=== PATIENT | male | born 1980 | race Caucasian/White ===

== ENCOUNTER 2017-03-16 14:33 | Inpatient (IN) | payer OTHER ==
[~2017-03-16] VITALS: Ht 172.7 cm; Wt 131.3 kg
[2017-03-16 14:56] VITALS: BP 116/65
[2017-03-16 14:58] LABS: BILIRUBIN NEGATIVE (NEGATIVE); BLOOD 3+ (NEGATIVE); CLARITY SL CLOUDY (CLEAR); COLOR YELLOW (YELLOW); GLUCOSE NEGATIVE (NEGATIVE); KETONE NEGATIVE (NEGATIVE); LEUKO ESTERASE 1+ (NEGATIVE); NITRITE NEGATIVE (NEGATIVE); UROBILINOGEN 0.2 E.U./dl (0.2-1.0)
[2017-03-16 15:08] LABS: HEMATOCRIT 42.8 % (42.0-52.0); HEMOGLOBIN 14.4 g/dl (14.0-18.0); MEAN CORPUSCULAR HGB 29.9 pg (27.0-31.0); MEAN CORPUSCULAR HGB CONC 33.6 g/dl (33.0-37.0); MEAN PLATELET VOLUME 9.7 fl (9.6-12.3); PLATELET COUNT AUTOMATED 245 10*3/uL (130-400); RED BLOOD COUNT 4.81 10*6/uL (4.50-5.90); RED CELL DISTRI WIDTH 12.2 % (0-14.5); WHITE BLOOD COUNT 7.3 10*3/uL (4.8-10.8)
[2017-03-16 15:19] LABS: BACTERIA 1+; EPITHELIAL CELLS 0-2; WBC 16-20 wbc/hpf (0-5)
[2017-03-16 15:25] LABS: ALBUMIN 4.2 gm/dl (3.1-4.5); CREATININE 1.58 mg/dL (0.70-1.30); POTASSIUM 3.9 mmol/L (3.5-5.1); TOTAL PROTEIN 7.5 gm/dL (6.4-8.2)
[2017-03-16 15:37] VITALS: BP 101/49
[2017-03-16 15:45] LABS: PLATELET SUFFICIENCY NORMAL (NORMAL); TOTAL CELLS COUNTED 100 #CELLS
[2017-03-16 15:46] LABS: VACUOLATION OF NEUTROPHILS SLIGHT
[2017-03-16 17:45] VITALS: BP 105/71
--- NOTE | 2017-03-16 17:45 | NUR ---
A 36, admitted to , under the services of HUMBERTO Staples DO with a diagnosis UTI, SEVERE SEPSIS. Chief complaint is PENILE PAIN, DIZZINESS, DYSURIA. Patient arrived via from ER. Monitor applied. Initial assessment completed. Vital signs taken and recorded. HUMBERTO STAPLES DO notified of admission to the unit. Orders received. See assessment for past medical history, medications and allergies. Patient and/or family oriented to unit. [facility] visitation policy reviewed. Clothing/patient valuable form completed. ASSESSMENT COMPLETE. SKIN INTACT WITH NO WOUNDS. WANTS FLU SHOT ON DISCHARGE. HOME MEDICATIONS VERIFIED. DR ROTH NOTIFIED. DARLYN LINTON
[2017-03-16] MEDS ORDERED: ENALAPRIL5 MG PO (18:33)
[2017-03-16] MEDS ORDERED: ZYRTEC10 MG PO (18:34)
--- NOTE | 2017-03-16 19:00 | NUR ---
ADMINISTERED PO NORCO LEFT FLANK PAIN RATED 8/10 AND IV ZOFRAN FOR NAUSEA. WILL MONITOR FOR EFFECTIVENESS.
[2017-03-16 20:00] VITALS: BP 107/72
[2017-03-16 20:48] VITALS: BP 98/60
--- NOTE | 2017-03-16 20:48 | NUR ---
pt. called out and stated "I feel like I can't catch my breath." pt. denies any pain. Vital signs takend and recorded. Lung sounds clear slight diminished. Increased O2 to 3L via NC. Pulse ox 96-98%.
--- NOTE | 2017-03-16 21:05 | NUR ---
UPON REASSESSING PATIENT, PATIENT FOUND SLEEPING. O2 IN USE. NO DISTRESS NOTED
--- NOTE | 2017-03-16 21:30 | NUR ---
SLEEPING, AWAKENS EASILY. RESPIRATIONS EASY. PULSE OX 98% 3L. DENIES SOB AT PRESENT. PATIENT CLAIMS HX SLEEP APNEA WITH C-PAP USE AT HOME. OFFERED AND EDUCATED REGARDING TEDS, DECLINED. IV FLUIDS INFUSING PER ORDER. CALL LIGHT WITHIN REACH. NO VOICED COMPLAINTS
--- NOTE | 2017-03-17 01:35 | NUR ---
TEMP 100.0. MEDICATED WITH TYLENOL PER PRN ORDER. ALSO REQUESTED AND RECEIVED ZOFRAN IV FOR C/O NAUSEA. CALL LIGHT WITHIN REACH. WILL MONITOR FOR EFFECTIVENESS
--- NOTE | 2017-03-17 01:48 | NUR ---
DR Spring BRADY ON FLOOR, INQUIRING ABOUT PATIENT CONDITION. IN TO ASSESS PATIENT
--- NOTE | 2017-03-17 02:02 | NUR ---
DR Dong DUNNE CONTACTED AND INFORMED OF +BC [facility]
--- NOTE | 2017-03-17 03:30 | NUR ---
EARLIER TYLENOL EFFECTIVE, TEMP 100.0
[2017-03-17 05:07] LABS: BUN 16 mg/dl (7-24); CHLORIDE 106 mmol/L (98-107); CHOLESTEROL 140 mg/dL (<200); CREATININE 1.53 mg/dL (0.70-1.30); POTASSIUM 3.8 mmol/L (3.5-5.1); SODIUM 139 mmol/L (136-145); TRIGLYCERIDES 73 mg/dl (<150); VLDL CHOLESTEROL 15 mg/dL (6-40)
[2017-03-17 05:15] LABS: HDL CHOLESTEROL 39 mg/dl (40-60); LDL CHOLESTEROL 86 mg/dL (9-159); THYROID STIM HORMONE (HS) 0.465 uIU/ml (0.358-4.75)
--- NOTE | 2017-03-17 06:00 | NUR ---
SLEEPING. RESPIRATIONS EASY. IV FLUIDS MAINTAINED. CALL LIGHT WITHIN REACH
[2017-03-17 06:12] LABS: ACT PARTIAL THROMBO TIME 31.3 SECONDS (20.8-31.5); INTERNATIONAL NORM RATIO 1.2 (2.0-3.5)
[2017-03-17 06:38] LABS: HEMATOCRIT 38.8 % (42.0-52.0); HEMOGLOBIN 12.5 g/dl (14.0-18.0); MEAN CELL VOLUME 91.9 fl (80.0-94.0); MEAN CORPUSCULAR HGB 29.6 pg (27.0-31.0); MEAN CORPUSCULAR HGB CONC 32.2 g/dl (33.0-37.0); MEAN PLATELET VOLUME 10.8 fl (9.6-12.3); PLATELET COUNT AUTOMATED 191 10*3/uL (130-400); RED BLOOD COUNT 4.22 10*6/uL (4.50-5.90); RED CELL DISTRI WIDTH 12.9 % (0-14.5); WHITE BLOOD COUNT 13.1 10*3/uL (4.8-10.8)
[2017-03-17 07:51] LABS: PLATELET SUFFICIENCY NORMAL (NORMAL); TOTAL CELLS COUNTED 100 #CELLS; TOXIC GRANULATION SLIGHT
[2017-03-17 08:00] VITALS: BP 144/78
[2017-03-17 08:14] LABS: VITAMIN D, 25-HYDROXY 10.5 ng/mL (30-100)
--- NOTE | 2017-03-17 09:00 | NUR ---
Radiology Transporter in to talk to patient. Patient states lives at home with alone. There are few steps in the home. Physician: out of state Pharmacy: out of state Home health services: none Patient's level of ADLs: INDEPENDENT Patient has working utilities: all working DME: none Follow-up physician's appointment after d/c: will be made by hospitalist nurse director upon discharge Does patient want to access PORTAL?: no Discharge plan discussed with patient, patient lives at home, is independen tin adls and ambulation, drives, works, patient states he will be going home when able and denies any home needs. RODRIGO OWENS
--- NOTE | 2017-03-17 09:00 | NUR ---
CALLED DR REYES OFFICE REGARDING NEW PT CONSULT. LEFT INFORMATION WITH NURY.
[2017-03-17 12:00] VITALS: BP 114/66
--- NOTE | 2017-03-17 14:12 | NUR ---
DR ROTH NOTIFIED OF PTS RESPIRATIONS AT 27 PER MINUTE AND TEMP OF 99.5. NO NEW ORDERS
[2017-03-17 16:00] VITALS: BP 125/74
[2017-03-17 20:00] VITALS: BP 138/80
--- NOTE | 2017-03-17 20:00 | NUR ---
RESTING WITH EYES CLOSED. RESPIRATIONS EASY. LUNGS DIMINISHED. O2 IN USE AT 2L. ABD SOFT WITH NORMOACTIVE BOWEL SOUNDS, C/O DIARRHEA D/T ANTIBIOTICS. IV FLUIDS INFUSING PER ORDER. CALL LIGHT WITHIN REACH. WILL MONITOR
--- NOTE | 2017-03-17 20:32 | NUR ---
MEDICATED WITH TYLENOL PER PRN ORDER FOR TEMP OF 102.9 WILL MONITOR
--- NOTE | 2017-03-17 21:00 | NUR ---
INFORMED PATIENT OF NEED FOR C-DIF STOOL. HAT PLACED IN TOILET
--- NOTE | 2017-03-17 23:00 | NUR ---
EARLIER TYLENOL EFFECTIVE, TEMP 97.8
[2017-03-18] VITALS: BP 152/89
--- NOTE | 2017-03-18 | NUR ---
SLEEPING. RESPIRATIONS EASY. VSS. IV FLUIDS MAINTAINED. CALL LIGHT WITHIN REACH
--- NOTE | 2017-03-18 04:25 | NUR ---
medicated with tylenol per prn order for c/o headache. also received tums for c/o indigestion. will monitor for effectiveness
--- NOTE | 2017-03-18 05:00 | NUR ---
sitting in recliner. no voiced complaints
--- NOTE | 2017-03-18 06:00 | NUR ---
earlier meds appear effective. sleeping. respirations easy. iv fluids maintained. call light within reach
[2017-03-18 06:26] LABS: HEMATOCRIT 36.1 % (42.0-52.0); HEMOGLOBIN 12.2 g/dl (14.0-18.0); MEAN CORPUSCULAR HGB 29.9 pg (27.0-31.0); MEAN CORPUSCULAR HGB CONC 33.8 g/dl (33.0-37.0); MEAN PLATELET VOLUME 11.3 fl (9.6-12.3); RED BLOOD COUNT 4.08 10*6/uL (4.50-5.90); RED CELL DISTRI WIDTH 12.5 % (0-14.5); WHITE BLOOD COUNT 13.8 10*3/uL (4.8-10.8)
[2017-03-18 06:29] LABS: MEAN CELL VOLUME 88.5 fl (80.0-94.0); PLATELET COUNT AUTOMATED 128 10*3/uL (130-400)
[2017-03-18 06:53] LABS: BUN 12 mg/dl (7-24); CHLORIDE 102 mmol/L (98-107); CREATININE 0.97 mg/dL (0.70-1.30); POTASSIUM 3.4 mmol/L (3.5-5.1); SODIUM 135 mmol/L (136-145)
[2017-03-18 07:34] LABS: BASOPHILS 1 % (0-1); PLATELET SUFFICIENCY LOW (NORMAL); TOTAL CELLS COUNTED 100 #CELLS
[2017-03-18 08:00] VITALS: BP 146/80
--- NOTE | 2017-03-18 09:36 | NUR ---
wendy french for c/o nausea and vomiting. will monitor.
--- NOTE | 2017-03-18 10:30 | NUR ---
LENKA BATES, NOT FULLY EFFECTIVE AT THIS TIME.
[2017-03-18 12:00] VITALS: BP 159/96
[2017-03-18 16:00] VITALS: BP 134/78
--- NOTE | 2017-03-18 17:35 | NUR ---
SYLVESTER GIVEN PER REQUEST FOR C/O GENERALIZED DISCOFORT. WILL MONITOR.
--- NOTE | 2017-03-18 18:23 | NUR ---
TYLENOL EFFECTIVE PER PT.
[2017-03-18 20:00] VITALS: BP 150/82; BP 152/95
--- NOTE | 2017-03-18 20:00 | NUR ---
RESTING IN BED WITH EYES CLOSED. RESPIRATIONS EASY. LUNGS DIMINISHED, CLEAR. PULSE OX 91% 35% VENTURI. ENCOURAGED TO COUGH AND DEEP BREATH. ABD SOFTLY OBESE WITH NORMOACTIVE BOWEL SOUNDS, CONTINUES TO C/O DIARRHEA. IV FLUIDS INFUSING PER ORDER. CALL LIGHT WITHIN REACH. NO VOICED COMPLAINTS
--- NOTE | 2017-03-18 22:00 | NUR ---
REMAINS DROWSY. SLEEPING, ONLY OOB TO BATH ROOM
[2017-03-19] VITALS: BP 146/94
--- NOTE | 2017-03-19 00:54 | NUR ---
MEDICATED WITH TYLENOL PER PRN ORDER FOR TEMP 1004
--- NOTE | 2017-03-19 03:00 | NUR ---
EARLIER TYLENOL EFFECTIVE, TEMP 98.2
--- NOTE | 2017-03-19 06:00 | NUR ---
RESTED THROUGHOUT NIGHT WITH NO DISTRESS NOTED. RESPIRATIONS EASY. O2 REMAINS IN USE VIA VENTURI. CONTINUES TO HAVE DIARRHEA AND URINARY FREQUENCY. IV FLUIDS INFUSING PER ORDER. CALL LIGHT WITHIN REACH
[2017-03-19 06:35] LABS: BASO % 0.1 % (0.0-1.0); HEMATOCRIT 39.8 % (42.0-52.0); HEMOGLOBIN 13.3 g/dl (14.0-18.0); LYMPH # 0.8 10*3/uL (1.3-4.4); LYMPH % 5.3 % (27.0-41.0); MEAN CELL VOLUME 87.1 fl (80.0-94.0); MEAN CORPUSCULAR HGB 29.1 pg (27.0-31.0); MEAN CORPUSCULAR HGB CONC 33.4 g/dl (33.0-37.0); MEAN PLATELET VOLUME 11.5 fl (9.6-12.3); MONO # 0.6 10*3/uL (0.1-1.0); MONO % 3.9 % (3.0-9.0); NEUT # 14.2 10*3/uL (2.3-7.9); NEUT % 89.6 % (47.0-73.0); PLATELET COUNT AUTOMATED 164 10*3/uL (130-400); RED BLOOD COUNT 4.57 10*6/uL (4.50-5.90); RED CELL DISTRI WIDTH 12.5 % (0-14.5); WHITE BLOOD COUNT 15.8 10*3/uL (4.8-10.8)
[2017-03-19 06:52] LABS: ALBUMIN 3.1 gm/dl (3.1-4.5); ALKALINE PHOSPHATASE 77 U/L (45-117); BUN 9 mg/dl (7-24); CHLORIDE 102 mmol/L (98-107); CREATININE 1.03 mg/dL (0.70-1.30); POTASSIUM 3.2 mmol/L (3.5-5.1); SGOT/AST 32 IU/L (3-35); SGPT/ALT 38 U/L (12-78); SODIUM 137 mmol/L (136-145); TOTAL PROTEIN 6.9 gm/dL (6.4-8.2)
[2017-03-19 06:54] LABS: ACT PARTIAL THROMBO TIME 27.3 SECONDS (20.8-31.5)
[2017-03-19 08:00] VITALS: BP 160/88
--- NOTE | 2017-03-19 08:00 | NUR ---
HOB ELEVATED, EASY RESPIRATIONS WITH SKIN W/D. PT HAS MASK O2 OFF, DISCUSSED RATIONAL FOR THE NEED TO WEAR MASK 02 AT ALL TIMES. PT VOICES UNDERSTANDING. PT ADMITS TO S.O.B WITH EXERTION. FATHER AT BEDSIDE & REVIEWED CALL LIGHT SYSTEM FOR ASSISTANCE. SEE SHIFT ASSESSMENT.
--- NOTE | 2017-03-19 09:18 | NUR ---
DR KERN NOTIFIED THAT PT DESATS WITHOUT MASK O2 & BECOMES TACHYCARDIC WITH EXERTION. ALSO INFORMED THAT ANTIHYPERTENSIVE HOME MEDS HAVE NOT BEEN ORDERED.
--- NOTE | 2017-03-19 11:51 | NUR ---
DR SHEPHERD NOTIFIED OF BLOOD CULTURE RESULTS. NO NEW ORDERS.
[2017-03-19 12:00] VITALS: BP 128/88
[2017-03-19 16:00] VITALS: BP 157/84
[2017-03-19 20:00] VITALS: BP 159/82
--- NOTE | 2017-03-19 20:20 | NUR ---
1946 RESTING IN BED ON LEFT SIDE. CALL LIGHT IN REACH. ALERT. IV FLUIDS CONT. PULSE OX 97% ON 3L 02 VIA NC. NO DISTRESS NOTED. NO C/O'S VOICED AT THIS TIME. MONITOR REMAINS ST IN THE LOW 100'S.
--- NOTE | 2017-03-19 22:10 | NUR ---
RESTING IN BED WITH EYES CLOSED. APPEARS TO BE SLEEPING.
[2017-03-20] VITALS: BP 150/92
--- NOTE | 2017-03-20 00:27 | NUR ---
UP TO BR. HR STILL ELEVATES WITH ACTIVITY. PT REMAINS AFEBRILE.
--- NOTE | 2017-03-20 04:27 | NUR ---
RESTING IN BED WITH EYES CLOSED. APPEARS TO BE SLEEPING.
--- NOTE | 2017-03-20 06:12 | NUR ---
SLEPT WELL THIS SHIFT. IV FLUIDS CONT. NO DISTRES NOTED. CONDITION GUARDED.
--- NOTE | 2017-03-20 07:17 | NUR ---
SLEEPING DURING REPORT
[2017-03-20 07:27] LABS: HEMATOCRIT 35.2 % (42.0-52.0); HEMOGLOBIN 12.1 g/dl (14.0-18.0); MEAN CELL VOLUME 87.1 fl (80.0-94.0); MEAN CORPUSCULAR HGB CONC 34.4 g/dl (33.0-37.0); MEAN PLATELET VOLUME 11.6 fl (9.6-12.3); PLATELET COUNT AUTOMATED 170 10*3/uL (130-400); RED BLOOD COUNT 4.04 10*6/uL (4.50-5.90); RED CELL DISTRI WIDTH 12.8 % (0-14.5); WHITE BLOOD COUNT 12.6 10*3/uL (4.8-10.8)
[2017-03-20 07:48] LABS: ALBUMIN 2.6 gm/dl (3.1-4.5); ALKALINE PHOSPHATASE 102 U/L (45-117); BUN 9 mg/dl (7-24); CHLORIDE 105 mmol/L (98-107); CREATININE 0.87 mg/dL (0.70-1.30); POTASSIUM 3.2 mmol/L (3.5-5.1); SGOT/AST 38 IU/L (3-35); SGPT/ALT 43 U/L (12-78); SODIUM 141 mmol/L (136-145)
[2017-03-20 08:00] VITALS: BP 147/84
[2017-03-20 08:03] LABS: PLATELET SUFFICIENCY NORMAL (NORMAL); TOTAL CELLS COUNTED 100 #CELLS
--- NOTE | 2017-03-20 09:00 | NUR ---
case management visits with patient, patient denies any home needs
--- NOTE | 2017-03-20 09:01 | NUR ---
DR STOKES CALLED ABOUT PATIENT'S HOME ENALAPRIL
--- NOTE | 2017-03-20 09:18 | NUR ---
DISCUSSED GOOD HAND WASHING & PROTECTION WHEN HE LEAVES. LAB RESULTS REVIEWED
--- NOTE | 2017-03-20 09:46 | NUR ---
SINUS ARRYTHMIA 96-110. DR KERN HERE AND WATCHING MONITOR ALSO.
--- NOTE | 2017-03-20 09:53 | NUR ---
DR KERN HERE AND SPOKE WITH THE PATIENT & FATHER.
[2017-03-20 16:00] VITALS: BP 156/88
[2017-03-20] MEDS ORDERED: Veetids,V-Cill500 MG PO (16:15)
--- NOTE | 2017-03-20 16:17 | NUR ---
DR DUMONT HERE - PATIENT SEEN - DISCUSSED ANTIBIOTICS ON DISCHARGE.
--- NOTE | 2017-03-20 19:55 | NUR ---
PT SITTING IN CHAIR IN ROOM. NO C/O VOICED AT PRESENT. PT C/O MILD DYSURIA DURING URINARY STREAM BUT NOT BAD. PT ENCOURAGED TO AMBULATE MORE FREQUENTLY. PT AGREEABLE. PT TEACHING GIVEN ON FOODS THAT CONTAIN POTASSIUM TO INCREASE LEVELS. LAB VALUES REVIEWED WITH PT. CALL LIGHT IN REACH.
[2017-03-20 20:00] VITALS: BP 143/87
--- NOTE | 2017-03-20 22:45 | NUR ---
24 HR chart check completed.
[2017-03-21] VITALS: BP 145/90
[2017-03-21 06:37] LABS: HEMATOCRIT 36.9 % (42.0-52.0); HEMOGLOBIN 12.5 g/dl (14.0-18.0); MEAN CELL VOLUME 86.6 fl (80.0-94.0); MEAN CORPUSCULAR HGB 29.3 pg (27.0-31.0); MEAN CORPUSCULAR HGB CONC 33.9 g/dl (33.0-37.0); MEAN PLATELET VOLUME 11.7 fl (9.6-12.3); PLATELET COUNT AUTOMATED 205 10*3/uL (130-400); RED BLOOD COUNT 4.26 10*6/uL (4.50-5.90); RED CELL DISTRI WIDTH 13.2 % (0-14.5); WHITE BLOOD COUNT 12.3 10*3/uL (4.8-10.8)
[2017-03-21 07:04] LABS: BUN 11 mg/dl (7-24); CHLORIDE 107 mmol/L (98-107); CREATININE 0.77 mg/dL (0.70-1.30); POTASSIUM 3.4 mmol/L (3.5-5.1); SODIUM 141 mmol/L (136-145)
[2017-03-21 07:09] LABS: PLATELET SUFFICIENCY NORMAL (NORMAL); TOTAL CELLS COUNTED 100 #CELLS
[2017-03-21 08:00] VITALS: BP 139/92
--- NOTE | 2017-03-21 08:40 | NUR ---
Awake and alert, states hopes he is going home today. Dr. Grimes called re: pt. request to shower. orders recieved.
[2017-03-21 12:00] VITALS: BP 159/93
--- NOTE | 2017-03-21 12:44 | NUR ---
Discharge instruction given , Voiced understanding. IV dc'd. Prescription sent to pharmacy for fill prior to discharge. per pharmacy there will be a short on meds script is for 52. Pharmacist states only 40 some available. Pt. is aware.
== END 2017-03-21 12:49 | disposition home or self-care (01) | DRG 871 ==
LOC: ED 14:33 → 4E 17:05 → EDHOLD 17:05 → 4E 17:27
PROVIDERS: Hospitalist; Internal Medicine; Nurse Practitioner Family; ADMIT Internal Medicine
DX: A41.9 Sepsis, unspecified organism (principal); N17.0 Acute kidney failure with tubular necrosis; E43 Unspecified severe protein-calorie malnutrition; N10 Acute pyelonephritis; N30.01 Acute cystitis with hematuria; Z68.42 Body mass index [BMI] 45.0-49.9, adult; R65.20 Severe sepsis without septic shock; Z60.2 Problems related to living alone; E87.6 Hypokalemia; E53.8 Deficiency of other specified B group vitamins; E55.9 Vitamin D deficiency, unspecified; E66.9 Obesity, unspecified; D64.9 Anemia, unspecified; I10 Essential (primary) hypertension; Z79.899 Other long term (current) drug therapy; Z82.49 Family history of ischemic heart disease and other diseases of the circulatory system; Z83.3 Family history of diabetes mellitus; Z80.3 Family history of malignant neoplasm of breast